=== PATIENT | female | born 1980 | race Caucasian/White ===

== ENCOUNTER 2023-04-06 03:39 | Emergency (ER) | payer MEDICAID ==
[~2023-04-06] VITALS: Ht 149.9 cm; Wt 56.7 kg
--- NOTE | 2023-04-06 03:53 | NUR ---
BIBFAMILY FROM HOME C/O R FLANK PAIN SINCE 2099. PT A/OX4; ANDORRAN SPEAKING. TOLERATING R/A WELL WITH NO RESP DISTRESS. CONNECTED PT TO POX AND MONITOR. SAFETY MEASURES IN PLACE .
[2023-04-06] MEDS ORDERED: ONDANSETRON HCL/PF 4 MG/2 ML VIAL ONE (03:56)
--- NOTE | 2023-04-06 03:57 | NUR ---
URINE COLLECTED AND SENT TO LAB
[2023-04-06] MEDS ORDERED: ONDANSETRON HCL/PF 4 MG/2 ML VIAL IVP ONE (04:00)
[2023-04-06] MEDS ORDERED: KETOROLAC TROMETHAMINE INJ 30 MG/ML VIAL IV ONE (04:00)
[2023-04-06] MEDS ORDERED: KETOROLAC TROMETHAMINE 15 MG/ML VIAL ONE (04:03)
--- NOTE | 2023-04-06 04:03 | NUR ---
LAC #18G S/L BLOOD COLLECTED AND SENT TO LAB
[2023-04-06 04:15] LABS: BASOPHILS # (AUTO) 0.3 K/uL (0.0-0.2); BASOPHILS % (AUTO) 2.5 % (0.0-2.0); EOSINOPHILS % (AUTO) 1.1 % (0.0-6.0); HEMATOCRIT 42 % (33-45); HEMOGLOBIN 14.2 g/dL (11.5-14.8); LYMPHOCYTES # (AUTO) 3.8 K/uL (0.8-4.8); LYMPHOCYTES % (AUTO) 34.1 % (20.0-44.0); MEAN CORPUSCULAR HGB CONC 34 g/dl (31.0-36.0); MEAN CORPUSCULAR VOLUME 88 fL (82-100); MONOCYTES # (AUTO) 0.7 K/uL (0.1-1.30); MONOCYTES % (AUTO) 6.3 % (2.0-12.0); NEUTROPHILS # (AUTO) 6.3 K/uL (1.8-8.9); PLATELET COUNT (AUTO) 187 K/uL (150-450); WHITE BLOOD COUNT (AUTO) 11.3 K/uL (4.3-11.0)
--- NOTE | 2023-04-06 04:19 | NUR ---
PT TAKEN TO CT VIA SIMON
[2023-04-06 04:22] LABS: CREATININE 0.7 mg/dL (0.6-1.3); POTASSIUM 3.5 mmol/L (3.5-5.1)
[2023-04-06 04:30] LABS: BILIRUBIN,URINE NEGATIVE (NEGATIVE); COLOR,URINE YELLOW (YELLOW); LEUKOCYTE ESTERASE ,URINE NEGATIVE (NEGATIVE); NITRITE, URINE NEGATIVE (NEGATIVE); PROTEIN,URINE NEGATIVE (NEGATIVE); UGLUCOSE NEGATIVE (NEGATIVE); UROBILINOGEN,URINE 0.2 EU/dL (0.2)
[2023-04-06 04:30] LABS: BILIRUBIN,DIRECT 0.1 mg/dL (0.0-0.2); BILIRUBIN,TOTAL 0.4 mg/dL (0.2-1.0); TOTAL PROTEIN, SERUM 8.5 g/dL (6.4-8.2)
--- NOTE | 2023-04-06 04:30 | NUR ---
PT RETURNED TO ER BED [address]
--- NOTE | 2023-04-06 04:55 | NUR ---
US TECH AT THE BED SIDE
[2023-04-06] MEDS ORDERED: ONDA4TAB11 PO (05:48)
[2023-04-06] MEDS ORDERED: OXYC-128 PO (05:48)
[2023-04-06] MEDS ORDERED: NABU-141 PO (05:48)
[2023-04-06 07:00] VITALS: BP 115/65
--- NOTE | 2023-04-06 07:01 | NUR ---
Patient discharged to home in stable condition. RX Written and verbal after care instructions given. Patient verbalizes understanding of instruction. IV removed. Catheter intact and site benign. Pressure and 4x4 applied to site. No bleeding noted.
== END 2023-04-06 07:05 | disposition home or self-care (01) ==
LOC: ER 03:41
DX: K80.20 Calculus of gallbladder without cholecystitis without obstruction (principal); Z79.899 Other long term (current) drug therapy
CPT/HCPCS: 99285; 74176; 96374; 76705; 96375; 85025; 80048; 83690; 80076; 84703; 81003; 36415; J2405; J1885

== ENCOUNTER 2023-09-07 20:34 | Emergency (ER) | payer MEDICAID ==
[~2023-09-07] VITALS: Ht 149.9 cm; Wt 54.9 kg
[~2023-09-07 20:34] MED LIST: NABU-141 PO; ONDA4TAB11 PO; OXYC-128 PO
[2023-09-07 23:07] LABS: BASOPHILS # (AUTO) 0.1 K/uL (0.0-0.2); BASOPHILS % (AUTO) 0.4 % (0.0-2.0); EOSINOPHILS # (AUTO) 0.1 K/uL (0.0-0.7); EOSINOPHILS % (AUTO) 0.7 % (0.0-6.0); HEMATOCRIT 39 % (33-45); HEMOGLOBIN 12.6 g/dL (11.5-14.8); LYMPHOCYTES # (AUTO) 2.6 K/uL (0.8-4.8); LYMPHOCYTES % (AUTO) 18.8 % (20.0-44.0); MEAN CORPUSCULAR HEMOGLOBIN 30 PG (26.0-33.0); MEAN CORPUSCULAR HGB CONC 33 g/dl (31.0-36.0); MEAN CORPUSCULAR VOLUME 92 fL (82-100); MONOCYTES # (AUTO) 0.7 K/uL (0.1-1.30); MONOCYTES % (AUTO) 5.1 % (2.0-12.0); NEUTROPHILS # (AUTO) 10.3 K/uL (1.8-8.9); PLATELET COUNT (AUTO) 480 K/uL (150-450); RED BLOOD CELL COUNT(AUTO) 4.19 MIL/uL (4.0-5.2); RED CELL DISTRIBUTION WIDTH 13.9 % (11.5-15.0); WHITE BLOOD COUNT (AUTO) 13.7 K/uL (4.3-11.0)
[2023-09-07 23:19] LABS: CALCIUM, SERUM 8.9 mg/dL (8.5-10.1); CARBON DIOXIDE 24 mmol/L (21-32); CHLORIDE 103 mmol/L (98-107); CREATININE 0.5 mg/dL (0.6-1.3); GLUCOSE 92 mg/dL (74-106); POTASSIUM 3.7 mmol/L (3.5-5.1); SODIUM SERUM 139 mmol/L (136-145); UREA NITROGEN, BLOOD 5 mg/dL (7-18)
[2023-09-07 23:22] LABS: PREGNANCY TEST URINE QUAL NEGATIVE (NEGATIVE)
[2023-09-07 23:34] LABS: ALANINE AMINOTRANSFERASE 29 U/L (12-78); ALBUMIN 3.9 g/dL (3.4-5.0); ALKALINE PHOSPHATASE 82 U/L (46-116); ASPARTATE AMINOTRANSFERASE 11 U/L (15-37); BILIRUBIN,DIRECT 0.1 mg/dL (0.0-0.2); BILIRUBIN,TOTAL 0.4 mg/dL (0.2-1.0); LIPASE 20 U/L (16-77); TOTAL PROTEIN, SERUM 7.8 g/dL (6.4-8.2)
[2023-09-07] MEDS ORDERED: KETOROLAC TROMETHAMINE 15 MG/ML VIAL ONE (23:56)
[2023-09-08] MEDS ORDERED: KETOROLAC TROMETHAMINE INJ 60 MG/2 ML VIAL IM ONE
[2023-09-08] MEDS ORDERED: CYCLOBENZAPRINE 10 MG TABLET ONE (00:29)
[2023-09-08] MEDS ORDERED: CYCLOBENZAPRINE 10 MG TABLET PO ONE (00:30)
[2023-09-08] MEDS ORDERED: NAPR-1192 PO (02:20)
[2023-09-08] MEDS ORDERED: CYCL5TAB PO (02:20)
[2023-09-08 02:34] VITALS: BP 129/89; TEMP 97.8; O2SAT 100
== END 2023-09-08 02:55 | disposition home or self-care (01) ==
LOC: ER 20:37
DX: S46.911A Strain of unspecified muscle, fascia and tendon at shoulder and upper arm level, right arm, initial encounter (principal); M54.2 Cervicalgia; Z90.49 Acquired absence of other specified parts of digestive tract; X58.XXXA Exposure to other specified factors, initial encounter; Y93.89 Activity, other specified; Y92.89 Other specified places as the place of occurrence of the external cause; Y99.8 Other external cause status
CPT/HCPCS: 99285; 72125; 71045; 96372; 93005; 73030; 85025; 80048; 83690; 80076; 85378; 84703; 36415; 84484; J1885

== ENCOUNTER 2024-05-20 14:38 | Emergency (ER) | payer MEDICAID, OTHER ==
[~2024-05-20] VITALS: Ht 149.9 cm; Wt 60.3 kg
[~2024-05-20 14:38] MED LIST changes: +CYCL5TAB PO; +NAPR-1192 PO
[2024-05-20 16:32] LABS: BASOPHILS % (AUTO) 0.2 % (0.0-2.0); EOSINOPHILS % (AUTO) 0.1 % (0.0-6.0); HEMATOCRIT 43 % (33-45); HEMOGLOBIN 14.7 g/dL (11.5-14.8); LYMPHOCYTES # (AUTO) 0.7 K/uL (0.8-4.8); LYMPHOCYTES % (AUTO) 5.5 % (20.0-44.0); MEAN CORPUSCULAR HEMOGLOBIN 31 PG (26.0-33.0); MEAN CORPUSCULAR HGB CONC 35 g/dl (31.0-36.0); MEAN CORPUSCULAR VOLUME 89 fL (82-100); MONOCYTES # (AUTO) 0.5 K/uL (0.1-1.30); NEUTROPHILS # (AUTO) 11.1 K/uL (1.8-8.9); NEUTROPHILS % (AUTO) 90.2 % (43.0-81.0); PLATELET COUNT (AUTO) 390 K/uL (150-450); RED BLOOD CELL COUNT(AUTO) 4.75 MIL/uL (4.0-5.2); RED CELL DISTRIBUTION WIDTH 13.9 % (11.5-15.0); WHITE BLOOD COUNT (AUTO) 12.3 K/uL (4.3-11.0)
[2024-05-20 16:41] LABS: CREATININE 0.7 mg/dL (0.6-1.3); POTASSIUM 2.9 mmol/L (3.5-5.1)
[2024-05-20 16:46] LABS: ALBUMIN 3.7 g/dL (3.4-5.0); BILIRUBIN,DIRECT 0.2 mg/dL (0.0-0.2); BILIRUBIN,TOTAL 0.8 mg/dL (0.2-1.0)
[2024-05-20 16:50] LABS: APPEARANCE,URINE Slightly Cloudy (CLEAR); BILIRUBIN,URINE SMALL (NEGATIVE); BLOOD, URINE Small Ery/uL (NEGATIVE); COLOR,URINE YELLOW (YELLOW); KETONES,URINE >=160 mg/dL (NEGATIVE); LEUKOCYTE ESTERASE ,URINE Negative (NEGATIVE); NITRITE, URINE Negative (NEGATIVE); PH,URINE 6.5 (5.0-8.0); PROTEIN,URINE 30 mg/dl (NEGATIVE); UGLUCOSE Negative (NEGATIVE); UROBILINOGEN,URINE 0.2 EU/dL (0.2)
[2024-05-20 16:56] LABS: PREGNANCY TEST URINE QUAL NEGATIVE (NEGATIVE)
[2024-05-20] MEDS ORDERED: ONDANSETRON HCL/PF 4 MG/2 ML VIAL ONE (17:02)
[2024-05-20] MEDS ORDERED: MORPHINE SULFATE INJ 4 MG/ML DISP.SYRIN ONE (17:02)
[2024-05-20] MEDS ORDERED: FAMOTIDINE/PF INJ 20 MG/2 ML VIAL IV ONE (17:03)
[2024-05-20 17:09] LABS: ADD URINE CULTURE NO; BACTERIA,URINE Few /HPF (None Seen); MUCUS,URINE Moderate /LPF (None Seen)
[2024-05-20] MEDS: ONDANSETRON HCL/PF 4 MG/2 ML VIAL IVP ONE (17:38)
[2024-05-20] MEDS: IV NS 0.9% 1,000 ML BAG IV ONE (17:38)
[2024-05-20] MEDS: FAMOTIDINE/PF INJ 20 MG/2 ML VIAL IV ONE (17:42)
[2024-05-20] MEDS: MORPHINE SULFATE INJ 2 MG/ML DISP.SYRIN IV ONE (17:44)
[2024-05-20] MEDS ORDERED: POTASSIUM CHLORIDE 20 MEQ TAB.PRT.SR PO ONE (18:32)
[2024-05-20] MEDS: POTASSIUM CHLORIDE 20 MEQ TAB.PRT.SR PO ONE (18:33)
[2024-05-20] MEDS ORDERED: FAMO20TA80 PO (19:08)
[2024-05-20] MEDS ORDERED: LOPE2TAB25 PO (19:08)
[2024-05-20] MEDS ORDERED: ONDA4TAB11 PO (19:08)
[2024-05-20 19:37] VITALS: BP 122/67; TEMP 98.5; O2SAT 97
== END 2024-05-20 19:40 | disposition home or self-care (01) ==
LOC: ER 14:52
DX: R19.7 Diarrhea, unspecified (principal); R11.2 Nausea with vomiting, unspecified; R10.84 Generalized abdominal pain; R10.2 Pelvic and perineal pain; E87.6 Hypokalemia; Z90.49 Acquired absence of other specified parts of digestive tract; Z79.899 Other long term (current) drug therapy; Z79.891 Long term (current) use of opiate analgesic
CPT/HCPCS: 99285; 74176; 96374; 96375; 96361; 93005; 85025; 80048; 83690; 80076; 84703; 81001; 36415; J2270; J3490; J2405; J7030

== ENCOUNTER 2024-10-16 02:45 | Emergency (ER) | payer OTHER ==
[~2024-10-16] VITALS: Ht 160 cm; Wt 71.2 kg
[~2024-10-16 02:45] MED LIST changes: +FAMO20TA80 PO; +LOPE2TAB25 PO
[2024-10-16] MEDS ORDERED: KETOROLAC TROMETHAMINE INJ 30 MG/ML VIAL ONE (03:35)
[2024-10-16] MEDS ORDERED: ONDANSETRON HCL/PF 4 MG/2 ML VIAL ONE (03:35)
[2024-10-16] MEDS: ONDANSETRON HCL/PF - ER 4 MG/2 ML VIAL IV ONE (03:38)
[2024-10-16 04:01] LABS: APPEARANCE,URINE CLEAR (CLEAR); BILIRUBIN,URINE 1+ (NEGATIVE); BLOOD, URINE TRACE-INTA Ery/uL (NEGATIVE); COLOR,URINE YELLOW (YELLOW); KETONES,URINE 1+ mg/dL (NEGATIVE); LEUKOCYTE ESTERASE ,URINE NEGATIVE (NEGATIVE); NITRITE, URINE NEGATIVE (NEGATIVE); PROTEIN,URINE TRACE mg/dl (NEGATIVE); UGLUCOSE NEGATIVE (NEGATIVE)
[2024-10-16 04:04] LABS: BASOPHILS % (AUTO) 0.2 % (0.0-2.0); EOSINOPHILS # (AUTO) 0.1 K/uL (0.0-0.7); EOSINOPHILS % (AUTO) 1.1 % (0.0-6.0); HEMATOCRIT 42 % (33-45); HEMOGLOBIN 14.6 g/dL (11.5-14.8); LYMPHOCYTES # (AUTO) 0.8 K/uL (0.8-4.8); LYMPHOCYTES % (AUTO) 11.3 % (20.0-44.0); MEAN CORPUSCULAR HEMOGLOBIN 31 PG (26.0-33.0); MEAN CORPUSCULAR HGB CONC 35 g/dl (31.0-36.0); MEAN CORPUSCULAR VOLUME 90 fL (82-100); MONOCYTES # (AUTO) 0.6 K/uL (0.1-1.30); MONOCYTES % (AUTO) 9.1 % (2.0-12.0); NEUTROPHILS # (AUTO) 5.2 K/uL (1.8-8.9); NEUTROPHILS % (AUTO) 78.3 % (43.0-81.0); PLATELET COUNT (AUTO) 325 K/uL (150-450); RED BLOOD CELL COUNT(AUTO) 4.68 MIL/uL (4.0-5.2); RED CELL DISTRIBUTION WIDTH 12.9 % (11.5-15.0); WHITE BLOOD COUNT (AUTO) 6.6 K/uL (4.3-11.0)
[2024-10-16 04:06] LABS: PREGNANCY TEST URINE QUAL NEGATIVE (NEGATIVE)
[2024-10-16 04:11] LABS: AMPHETAMINE, URINE NEGATIVE (NEGATIVE); BARBITURATE, URINE NEGATIVE (NEGATIVE); BENZODIAZEPINE, URINE NEGATIVE (NEGATIVE); CANNABINOID, URINE NEGATIVE (NEGATIVE); COCCAINE, URINE NEGATIVE (NEGATIVE); OPIATE, URINE NEGATIVE (NEGATIVE); PHENCYCLIDINE SCREEN,URINE NEGATIVE (NEGATIVE)
[2024-10-16] MEDS: KETOROLAC TROMETHAMINE INJ 30 MG/ML VIAL IV ONE (04:11)
[2024-10-16 04:16] LABS: ALANINE AMINOTRANSFERASE 155 U/L (12-78); ALBUMIN 3.8 g/dL (3.4-5.0); ALCOHOL, BLOOD < 3 mg/dL (0-10); ALKALINE PHOSPHATASE 165 U/L (46-116); ASPARTATE AMINOTRANSFERASE 122 U/L (15-37); BILIRUBIN,TOTAL 1.3 mg/dL (0.2-1.0); CALCIUM, SERUM 8.6 mg/dL (8.5-10.1); CARBON DIOXIDE 26 mmol/L (21-32); CHLORIDE 103 mmol/L (98-107); CREATININE 0.7 mg/dL (0.6-1.3); GLUCOSE 165 mg/dL (74-106); LIPASE 16 U/L (16-77); POTASSIUM 3.2 mmol/L (3.5-5.1); SODIUM SERUM 137 mmol/L (136-145); TOTAL PROTEIN, SERUM 7.9 g/dL (6.4-8.2); UREA NITROGEN, BLOOD 12 mg/dL (7-18)
[2024-10-16 04:23] LABS: ADD URINE CULTURE NO; BACTERIA,URINE Rare /HPF (None Seen); MUCUS,URINE Few /LPF (None Seen); WBC,URINE 0-2 /HPF (0-3)
[2024-10-16] MEDS ORDERED: POTASSIUM CHLORIDE 20 MEQ TAB.PRT.SR PO ONE (05:10)
[2024-10-16] MEDS: POTASSIUM CHLORIDE 20 MEQ TAB.PRT.SR PO ONE (05:12)
[2024-10-16] MEDS ORDERED: OMEP20TA20 PO (05:54)
[2024-10-16] MEDS ORDERED: ONDA4TAB5 PO (05:54)
[2024-10-16] MEDS ORDERED: METR500T PO (07:28)
[2024-10-16] MEDS ORDERED: SULF1TAB48 PO (07:28)
[2024-10-16] MEDS: METRONIDAZOLE 500 MG TABLET PO ONE (07:30)
[2024-10-16] MEDS: SULFAMETH/TRIMETH 800/160 MG 1 UDTAB TABLET PO ONE (07:30)
[2024-10-16] MEDS ORDERED: METRONIDAZOLE 500 MG TABLET ONE (07:36)
[2024-10-16] MEDS ORDERED: SULFAMETH/TRIMETH 800/160 MG 1 UDTAB TABLET ONE (07:37)
[2024-10-16 08:04] VITALS: BP 120/82; TEMP 98.5; O2SAT 98
== END 2024-10-16 07:50 | disposition home or self-care (01) ==
LOC: ER 02:47
DX: R10.84 Generalized abdominal pain (principal); R11.2 Nausea with vomiting, unspecified; Z79.899 Other long term (current) drug therapy; Z87.19 Personal history of other diseases of the digestive system; Z90.49 Acquired absence of other specified parts of digestive tract
CPT/HCPCS: 99285; 96374; 96375; 74176; 85025; 83690; 84703; 81001; 36415; 80053; 80320; 80307; J1885; J2405 ×2; G0480

== ENCOUNTER 2024-11-28 20:45 | Emergency (ER) | payer OTHER ==
[~2024-11-28] VITALS: Ht 149.9 cm; Wt 63.5 kg
[~2024-11-28 20:45] MED LIST changes: +METR500T PO; +OMEP20TA20 PO; +ONDA4TAB5 PO; +SULF1TAB48 PO
[2024-11-28] MEDS ORDERED: BISACODYL (5 MG) 5 MG TABLET.DR ONE (22:27)
[2024-11-28] MEDS ORDERED: DOCUSATE SODIUM 100 MG CAPSULE PO ONE (22:27)
[2024-11-28] MEDS: POLYETHYLENE GLYCOL 3350 17 GM POWD.PACK PO ONE (22:36)
[2024-11-28] MEDS: DOCUSATE SODIUM 100 MG CAPSULE PO SCH (22:36)
[2024-11-28] MEDS: BISACODYL (5 MG) 5 MG TABLET.DR PO ONE (22:36)
[2024-11-28] MEDS: POLYETHYLENE GLYCOL 3350 17 GM POWD.PACK ONE (22:36)
[2024-11-28] MEDS ORDERED: POLY17PO4 PO (22:37)
[2024-11-28] MEDS ORDERED: DOCU-141 PO (22:37)
[2024-11-28] MEDS ORDERED: SENN8.6T19 PO (22:37)
[2024-11-28 22:39] VITALS: BP 161/101; TEMP 98.4; O2SAT 98
== END 2024-11-28 22:50 | disposition home or self-care (01) ==
LOC: ER 20:49
DX: K59.03 Drug induced constipation (principal); Z79.899 Other long term (current) drug therapy; Z87.19 Personal history of other diseases of the digestive system; Z90.49 Acquired absence of other specified parts of digestive tract